=== PATIENT | female | born 1990 | race Caucasian/White ===

== ENCOUNTER 2021-02-27 14:15 | Outpatient (CLI) | payer OTHER | END 2021-02-27 14:16 | disposition home or self-care (01) | LOC: BICRAD 14:15 | PROVIDERS: ATTEND Specialist | DX: M54.5 Low back pain (principal) | CPT/HCPCS: 72100 ==

== ENCOUNTER 2021-03-23 08:15 | Outpatient (CLI) | payer BC | END 2021-03-23 08:16 | disposition home or self-care (01) | LOC: BICMRI 08:15 | PROVIDERS: ATTEND Specialist | DX: R29.898 Other symptoms and signs involving the musculoskeletal system (principal); R20.2 Paresthesia of skin; Z91.81 History of falling; M51.27 Other intervertebral disc displacement, lumbosacral region; M51.26 Other intervertebral disc displacement, lumbar region; Q05.7 Lumbar spina bifida without hydrocephalus | CPT/HCPCS: 72148 ==

== ENCOUNTER 2023-08-02 08:48 | Outpatient (CLI) | payer BC | END 2023-08-02 08:49 | disposition home or self-care (01) | LOC: BICRAD 08:48 | PROVIDERS: ATTEND Specialist | DX: M79.671 Pain in right foot (principal) ==

== ENCOUNTER 2023-10-08 11:16 | Outpatient (CLI) | payer BC | END 2023-10-08 11:17 | disposition home or self-care (01) | LOC: BICMRI 11:16 | PROVIDERS: ATTEND Plastic Surgery Surgery of the Hand | DX: M79.671 Pain in right foot (principal); M89.8X7 Other specified disorders of bone, ankle and foot ==